=== PATIENT | female | born 1965 | race American Indian/Alaskan Native ===

== ENCOUNTER 2017-02-17 19:07 | Emergency (ER) | payer MEDICARE, BC ==
[2017-02-17] MEDS ORDERED: Sodium Chloride 0.9% 500 ML IV ONE (19:58)
[2017-02-17] MEDS ORDERED: Albuterol-Ipratrop 3 mg / 0.5 (3 ml) UD IH STA (19:59)
[2017-02-17] MEDS ORDERED: Promethazine/Cod 6.25mg-10mg/5ml Syr UD PO STA (20:00)
--- NOTE | 2017-02-17 20:03 | C.PDOC ---
History Of Present Illness 51 yr old female presents to the ER for evaluation of a continuous dry cough, worsening for the past 2 weeks. Patient states she has been by GI for GERD and referred to double bottom driver due to chronic intermittent cough, nasal congestion and post nasal drip " but did not make it there yet". Patient states she lives in [place] but frequently visits [place] to visit family by bus and arrived last week. Patient reports since yesterday she has developed chest tightness with intermittent wheezing and spasmatic dry coughing. Patient denies fever, chills, headache, dizziness, neck pain, palpitations, dyspnea, SOB, abd. pain, nausea, vomiting, back pain, or any other active complaints. Time Seen by Provider: 02/17/17 19:40 Chief Complaint (Nursing): Cough, Cold, Congestion History Per: Patient History/Exam Limitations: no limitations Onset/Duration Of Symptoms: Persistent (2 weeks), Worse Since (For 1 day ) Current Symptoms Are (Timing): Still Present Sick Contacts (Context): None Past Medical History Reviewed: Historical Data, Nursing Documentation, Vital Signs Vital Signs: Last Vital Signs Temp 97.6 F 02/17/17 21:36 Pulse 74 02/17/17 21:36 Resp 18 02/17/17 21:36 BP 136/89 02/17/17 21:36 Pulse Ox 100 02/17/17 21:36 - Medical History PMH: Anxiety, Asthma, Depression, HTN, Hypothyroidism Family History: States: No Known Family Hx - Social History Hx Alcohol Use: Yes Hx Substance Use: No Review Of Systems Except As Marked, All Systems Reviewed And Found Negative. Constitutional: Negative for: Fever, Chills Cardiovascular: Positive for: Chest Pain (Chest tightness). Negative for: Palpitations Respiratory: Positive for: Cough (Dry), Wheezing (Intermittent ). Negative for : Shortness of Breath Gastrointestinal: Negative for: Nausea, Vomiting Musculoskeletal: Negative for: Neck Pain, Back Pain Neurological: Negative for: Weakness, Numbness, Headache Physical Exam - Physical Exam Appears: Well, Non-toxic, No Acute Distress Skin: Normal Color, Warm, Dry, No Rash Eye(s): bilateral: PERRL Nose: No Flaring Oral Mucosa: No Moist, No Drooling Throat: No Erythema, No Exudate, No Drooling Neck: Supple Cardiovascular: Rhythm Regular, No Friction Rub, No Murmur, No JVD, Other ((-) carotid bruits) Respiratory: No Decreased Breath Sounds, No Accessory Muscle Use, No Stridor, Wheezing (scattered B/L wheezing, BS equal B/L.) Gastrointestinal/Abdominal: Soft, No Tenderness Extremity: No Pedal Edema Neurological/Psych: Oriented x3, Normal Speech ED Course And Treatment - Laboratory Results Result Diagrams: 02/17/17 20:14 02/17/17 20:14 Lab Interpretation: No Acute Changes O2 Sat by Pulse Oximetry: 96 (RA ) Pulse Ox Interpretation: Normal - Other Rad CXR X-Ray: Interpreted by Me, Viewed By Me Interpretation: (+) increased perihilar marking r/o B/L perihilar lymphodenopathy Progress Note: On re-eavluation, pt reports moderate improvement in sx, cough. Afebrile, hemodynamicaly stable. Non-toxic. PulseOx 98% RA. ENT: No acute findings. neck: Supple, (-) carotid bruits, (-) JVD. Lungs: CTA B/L, BS equal B/L. Abd: benign. Neuorlogicaly intact. blood work review and appears without acute abnormalities. CXR: (+)perihilar lymphodenopathy r/o sarcoidosis ? results review and discussed with pt. Pt advised and ref. to f/u with Pu; lmologist in 1-2 days for re-eavluation and further tx. return to ED if any worsening or new changes. Pt understand and agrees with discharges. Medical Decision Making Medical Decision Making: PLAN: * CXR * D-Dimer * CBC * BMP * Urinalysis * Albuterol IH * Phenergan PO * Solumedrol IVP * Sodium Chloride IV Disposition Counseled Patient/Family Regarding: Studies Performed, Diagnosis, Need For Followup, Rx Given - Disposition Referrals: [facility] [Outside] Madison Swift MD [Staff Provider] - Disposition: HOME/ ROUTINE Disposition Time: 20:54 Condition: STABLE Additional Instructions: Encourage fluids Take medication as prescribed Follow up with PMD, Lung specialist in 2-3 days for re-evaluation. Return to ED if any worsening or new changes. Prescriptions: Albuterol HFA [Ventolin HFA 90 mcg/actuation (8 g)] 1 puff IH Q6 #1 inhaler Prednisone [Deltasone] 60 mg PO DAILY #9 tablet Promethazine/Codeine [Phenergan/Codeine Oral Syrup] 5 ml PO Q6 #90 ml Instructions: Sarcoidosis (ED), Reactive Airways Disease (ED) Forms: [employer] (Serbian) - Clinical Impression Clinical Impression: Asthmatic bronchitis - PA / PERSONNEL [employer]ERKS SUPERVISOR / Resident Statement MD/DO has reviewed & agrees with the documentation as recorded. - Scribe Statement The provider has reviewed the documentation as recorded by the Scribe Sparkle Van All medical record entries made by the Altheaibchiquis were at my direction and personally dictated by me. I have reviewed the chart and agree that the record accurately reflects my personal performance of the history, physical exam, medical decision making, and the department course for this patient. I have also personally directed, reviewed, and agree with the discharge instructions and disposition.
[2017-02-17 20:19] LABS: BASO % 0.3 % (0.0-2.0); EOS # 0.5 K/uL (0.0-0.7); EOS % 5.1 % (0.0-4.0); HEMATOCRIT 39.8 % (34.0-47.0); LYMPH % 39.9 % (20.0-40.0); MEAN CELL VOLUME 82.6 fL (81.0-99.0); MEAN CORPUSCULAR HEMOGLOBIN 27.7 pg (27.0-31.0); MEAN CORPUSCULAR HGB CONC 33.5 g/dL (33.0-37.0); MEAN PLATELET VOLUME 9.1 fL (7.2-11.7); MONO # 1.2 K/uL (0.0-0.8); MONO % 11.7 % (0.0-10.0); NRBC % 0.1 % (0.0-2.0); RED CELL DISTRIBUTION WIDTH 14.1 % (11.5-14.5); WHITE BLOOD COUNT 10.1 K/uL (4.8-10.8)
[2017-02-17] MEDS ORDERED: Sodium Chloride 0.9% 1,000 ML ONE (20:19)
[2017-02-17 20:21] LABS: URINE BILIRUBIN NEGATIVE (NEGATIVE); URINE BLOOD NEGATIVE (NEGATIVE); URINE COLOR Colorless (YELLOW); URINE GLUCOSE (UA) NORMAL (Normal); URINE KETONE NEGATIVE (NEGATIVE); URINE LEUKOCYTE ESTERASE NEG Leu/uL (Negative); URINE PROTEIN NEGATIVE (NEGATIVE); URINE UROBILINOGEN NORMAL mg/dL (0.2-1.0)
[2017-02-17] MEDS ORDERED: Promethazine/Cod 6.25mg-10mg/5ml Syr UD ONE (20:25)
[2017-02-17] MEDS ORDERED: Albuterol-Ipratrop 3 mg / 0.5 (3 ml) UD ONE (20:28)
[2017-02-17 20:29] LABS: CHLORIDE 100 mmol/L (98-107); POTASSIUM 3.6 mmol/L (3.6-5.2); SODIUM 141 mmol/L (132-148)
[2017-02-17 20:32] LABS: BLOOD UREA NITROGEN 8 mg/dL (7-17); CALCIUM 8.7 mg/dl (8.6-10.4); CARBON DIOXIDE 29 mmol/L (22-30); GFR AFRICAN-AMERICAN > 60; GLUCOSE,RANDOM 88 mg/dL (65-105)
[2017-02-17 20:37] VITALS: RESP 18
[2017-02-17 21:37] VITALS: BP 136/89; PULSE 74; TEMP 97.6
--- NOTE | 2017-02-18 09:22 | RAD ---
HISTORY: Shortness of breath COMPARISON: No prior. TECHNIQUE: Chest PA and lateral FINDINGS: LUNGS: The lungs are well inflated and clear. PLEURA: No significant pleural effusion identified. No pneumothorax apparent. CARDIOVASCULAR: Normal. OSSEOUS STRUCTURES: No significant abnormalities. VISUALIZED UPPER ABDOMEN: Normal. OTHER FINDINGS: None. IMPRESSION: No active pulmonary disease.
[2017-02-19 23:37] VITALS: O2SAT 96
== END 2017-02-17 21:37 | disposition home or self-care (01) ==
LOC: C.ER 19:07
DX: J45.909 Unspecified asthma, uncomplicated (principal)
CPT/HCPCS: 71020; 80048; 81001; 85025; 85378; 94150; 94640; 96361; 96374; 99284; J2930; J7040